=== PATIENT | male | born 1995 | race Caucasian/White ===

== ENCOUNTER → 2019-02-13 | Outpatient (CLI) | payer OTHER ==
--- NOTE | 2019-02-13 12:55 | RADIOLOGY REPORT (SQ) ---
EXAM DESCRIPTION: DUPLEX ART/DENNYS FLOW COMPLETE COMPLETED DATE/TIME: 02/13/2019 12:22 pm REASON FOR STUDY: I70.1 ATHEROSCLEROSIS OF RENAL ARTERY I70.1 ATHEROSCLEROSIS OF RENAL ARTERY COMPARISON: None. TECHNIQUE: Realtime and static grayscale images acquired. Selected color Doppler, velocities and spe ctral images recorded. LIMITATIONS: None. FINDINGS: RIGHT KIDNEY: RENAL ARTERY VELOCITIES: 81 cm/sec. Segmental artery velocity 34.7 cm/sec. RENAL VEIN: Color doppler flow present, patent. VELOCITY RATIO: 0.84. Normal waveforms. KIDNEY: Normal size. No significant pathology. LEFT KIDNEY: RENAL ARTERY VELOCITIES: 55.8 cm/sec. Segmental artery velocity 44.5 cm/sec. RENAL VEIN: Color doppler flow present, patent. VELOCITY RATIO: 0.58. Normal waveforms. KIDNEY: Normal size. No significant pathology. BLADDER: Normal. OTHER: No other significant finding. IMPRESSION: NO DOPPLER EVIDENCE OF HEMODYNAMICALLY SIGNIFICANT RENAL ARTERY STENOSIS. COMMENT: NORMAL RENAL ARTERY/AORTA VELOCITY RATIO IS LESS THAN OR EQUAL TO 3.5. TECHNICAL DOCUMENTATION: JOB ID: [id number] [employer]- All Rights Reserved Reading location - IP/workstation name: [facility]
== END ==
LOC: RAD 09:40
DX: I70.1 Atherosclerosis of renal artery (principal)
CPT/HCPCS: 93975